=== PATIENT | female | born 1950 | race Caucasian/White ===

== ENCOUNTER 2018-01-28 09:33 | Day surgery (SDC) | payer MEDICARE ==
[2018-01-15 10:40] VITALS: BMI 25.0
[~2018-01-28 09:33] MED LIST: Carbachol 0.01% IO ONE; Chondroitin/Hyaluronate Opth Syringe KIT (0.55 ml-0.5 ml) IO ONE; Ciprofloxacin 0.3% OPTH SOLN OD SCH; Cyclopentolate 1% Opth (2 ml) OD SCH; Flurbiprofen 0.03% Opht SOLN OD SCH; Hyaluronidase Human, Recombi 150 U/ML VIAL ONE; Lactated Ringer's 500 ML IV ONE; Phenylephrine 2.5% Opht Soln OD SCH; Povidone Iodine Ophthalmic 5% Soln ONE; Tetracaine 0.5% Ophth (OR ONLY) ONE; Tobramycin/Dexamethasone OPHT OINT ONE; Tropicamide 1% Opht SOLUTION OD SCH
[2018-01-28] MEDS ORDERED: Lactated Ringer's 500 ML IV ONE ×2 (10:40→13:30)
[2018-01-28] MEDS ORDERED: acetaZOLAMIDE 500 mg SR Cap PO ONE (12:00)
[2018-01-28] MEDS ORDERED: Midazolam 2 MG/2 ML VIAL ONE (13:20)
[2018-01-28 14:20] VITALS: O2SAT 100
[2018-01-28 15:22] VITALS: BP 110/72; PULSE 66; RESP 18; TEMP 98
--- NOTE | 2018-01-28 19:33 | OP ---
PROCEDURE DATE: 01/28/2018 PREOPERATIVE DIAGNOSIS: Mature cataract, right eye. POSTOPERATIVE DIAGNOSIS: Mature cataract, right eye. OPERATIVE PROCEDURE: Phacoemulsification, right eye, insertion of posterior chamber lens implant. SURGEON: Maximo Braga MD COSURGEON: Riley Johnson MD ANESTHESIA TYPE: Local intravenous sedation. PROCEDURE: The patient was brought into the operating room, placed in supine position, prepped and draped in the usual fashion for ophthalmic surgery. Lid speculum was inserted, lids and exposing globe. A side-port incision was made superiorly and inferiorly with a disposable sharp blade. Anterior chamber was filled with Viscoat. A near clear corneal incision was made temporally with a 2.75-mm keratome. Capsulorrhexis was then performed with Utrata forceps. Hydrodissection carried out with balanced salt solution. Nucleus was phacoemulsified. Remaining cortical fragments were removed with a split irrigation and aspiration system. The capsular sac was filled with Provisc. A posterior chamber lens was then injected into the capsular sac and rotated into horizontal position. Provisc was aspirated out of the anterior chamber. The pupil was constricted with Miochol. The wound was found to be watertight. Topical Betadine, Timoptic, and TobraDex ointment and pressure patch were applied. The patient tolerated the procedure well. Maximo Braga MD
== END 2018-01-28 15:25 | disposition home or self-care (01) ==
LOC: C.SDS 09:33
PROVIDERS: ATTEND Ophthalmology
DX: H26.9 Unspecified cataract (principal)
CPT/HCPCS: 66984; J2250; J3010; J3470; J7120; V2632

== ENCOUNTER 2018-04-08 08:29 | Day surgery (SDC) | payer MEDICARE ==
[2018-01-15 10:39] VITALS: BMI 25.0
[~2018-04-08 08:29] MED LIST changes: -Ciprofloxacin 0.3% OPTH SOLN OD SCH; +Ciprofloxacin 0.3% OPTH SOLN OS SCH; -Cyclopentolate 1% Opth (2 ml) OD SCH; -Flurbiprofen 0.03% Opht SOLN OD SCH; +Flurbiprofen 0.03% Opht SOLN OS SCH; +Lidocaine Hydrochloride 5 ML INJ ONE; -Phenylephrine 2.5% Opht Soln OD SCH; +Phenylephrine 2.5% Opht Soln OS SCH; -Tropicamide 1% Opht SOLUTION OD SCH; +Tropicamide 1% Opht SOLUTION OS SCH; +acetaZOLAMIDE 500 mg SR Cap PO ONE
[2018-04-08] MEDS ORDERED: Lactated Ringer's 500 ML IV ONE (09:30)
[2018-04-08] MEDS ORDERED: Midazolam 2 MG/2 ML VIAL ONE (11:44)
[2018-04-08] MEDS ORDERED: acetaZOLAMIDE 500 mg SR Cap PO ONE (12:45)
[2018-04-08 14:33] VITALS: BP 92/57; PULSE 85; RESP 18; TEMP 97.7; O2SAT 98
--- NOTE | 2018-04-08 21:14 | OP ---
PROCEDURE DATE: 04/08/2018 PREOPERATIVE DIAGNOSIS: Cataract, left eye. POSTOPERATIVE DIAGNOSIS: Cataract, left eye. OPERATIVE PROCEDURE: Phacoemulsification, left eye, insertion of posterior chamber lens implant. SURGEON: Maximo Braga MD COSURGEON: Riley Johnson MD ANESTHESIA TYPE: Local intravenous sedation. PROCEDURE: The patient was brought into the operating room, placed in supine position, prepped and draped in the usual fashion for ophthalmic surgery. Lid speculum was inserted, lids and exposing globe. A side-port incision was made superiorly and inferiorly with a disposable sharp blade. Anterior chamber was filled with Viscoat. A near clear corneal incision was made temporally with a 2.75-mm keratome. Capsulorrhexis was then performed with Utrata forceps. Hydrodissection carried out with balanced salt solution. Nucleus was phacoemulsified. Remaining cortical fragments were removed with a split irrigation and aspiration system. The capsular sac was filled with Provisc. A posterior chamber lens was then injected into the capsular sac and rotated into horizontal position. Provisc was aspirated out of the anterior chamber. The pupil was constricted with Miochol. The wound was found to be watertight. Topical Betadine, Timoptic, and TobraDex ointment and pressure patch were applied. The patient tolerated the procedure well. Maximo Braga MD
== END 2018-04-08 13:46 | disposition home or self-care (01) ==
LOC: C.SDS 08:29
PROVIDERS: ATTEND Ophthalmology
DX: H25.12 Age-related nuclear cataract, left eye (principal)
CPT/HCPCS: 66984; J2250; J3010; J3470; J7120; V2632